=== PATIENT | male | born 1990 | race American Indian/Alaskan Native ===

== ENCOUNTER 2024-11-28 09:46 | Emergency (ER) | payer OTHER ==
[~2024-11-28] VITALS: Ht 172.7 cm; Wt 68.0 kg
[2024-11-28] MEDS ORDERED: VALACYCLOVIR1000 MG PO (10:25)
[2024-11-28 10:30] VITALS: BP 138/96
== END 2024-11-28 10:29 | disposition home or self-care (01) ==
LOC: ED 09:46
DX: B02.9 Zoster without complications (principal)
CPT/HCPCS: 99282